=== PATIENT | male | born 1980 | race Caucasian/White ===

== ENCOUNTER 2022-04-28 17:01 | Inpatient (IN) | payer MEDICARE, MEDICAID ==
[~2022-04-28] VITALS: Ht 167.6 cm; Wt 95.3 kg
[2022-04-28] MEDS ORDERED: PNEUMOCOCCAL VACCINE POLYVALENT 0.5 ML VIAL [PPSV23] IM. ONE (21:45)
[2022-04-28] MEDS ORDERED: ZOLPIDEM TARTRATE 10 MG TABLET PO PRN (22:15)
[2022-04-28] MEDS: ZOLPIDEM TARTRATE 10 MG TABLET PO PRN (22:17)
[2022-04-28 23:26] LABS: GLUCOMETER DEV NAME(LOC) POC.BV
[2022-04-28 23:28] VITALS: BP 146/85
[2022-04-29 06:38] LABS: HEMOGLOBIN A1C 5.4 % (3.8-5.6)
[2022-04-29 06:46] LABS: BASOPHILS % (AUTO) 0.4 % (0.0-2.0); EOSINOPHILS % (AUTO) 3.1 % (1.0-6.0); HEMATOCRIT 44.1 % (41-53); HEMOGLOBIN 14.7 g/dL (13.5-17.5); LYMPHOCYTES # (AUTO) 2.2 K/uL (1.0-4.8); LYMPHOCYTES % (AUTO) 27.1 % (22.0-44.0); MEAN CORPUSCULAR HEMOGLOBIN 29.5 pg (26.0-34.0); MEAN CORPUSCULAR HGB CONC 33.3 G/dL (31.0-37.0); MEAN CORPUSCULAR VOLUME 89 fL (80-100); MONOCYTES # (AUTO) 0.5 K/uL (0.1-1.0); NEUTROPHILS # (AUTO) 5.1 K/uL (1.8-7.7); NEUTROPHILS % (AUTO) 63.4 % (40.0-70.0); PLATELET COUNT (AUTO) 297 K/uL (150-450); RED BLOOD CELL COUNT(AUTO) 4.98 MIL/uL (4.50-5.90); RED CELL DISTRIBUTION WIDTH 13.9 % (11.5-14.5)
[2022-04-29] MEDS ORDERED: ACETAMINOPHEN 325 MG TABLET PO PRN (07:00)
[2022-04-29] MEDS ORDERED: LOPERAMIDE HCL 2 MG CAPSULE PO PRN (07:00)
[2022-04-29] MEDS ORDERED: ONDANSETRON HCL 4 MG TABLET PO PRN (07:00)
[2022-04-29] MEDS ORDERED: CloNIDine HCL 0.1 MG TABLET PO PRN (07:00)
[2022-04-29] MEDS ORDERED: PETROLATUM,WHITE 28 GM JELLY TP PRN (07:00)
[2022-04-29] MEDS ORDERED: NICOTINE 14 MG/24 HOUR PATCH TD PRN (07:00)
[2022-04-29] MEDS ORDERED: DOCUSATE SODIUM 100 MG CAPSULE PO PRN (07:00)
[2022-04-29] MEDS ORDERED: GuaiFENesin/D-METHORPHAN [SUGAR-FREE] 200-20MG/10 ML SYRUP UDCUP PO PRN (07:00)
[2022-04-29] MEDS ORDERED: IBUPROFEN 400 MG TABLET PO PRN (07:00)
[2022-04-29] MEDS ORDERED: MAG HYDROX/AL HYDROX/SIMETH ES 30 ML SUSPENSION UDCUP PO PRN (07:00)
[2022-04-29] MEDS ORDERED: MAGNESIUM HYDROXIDE SUSPENSION 30 ML UDCUP PO PRN (07:00)
[2022-04-29] MEDS ORDERED: ALBUTEROL SULFATE HFA 90 MCG/PUFF 8 GM INHALER IH PRN (07:00)
[2022-04-29 07:10] LABS: ALANINE AMINOTRANSFERASE 61 U/L (12-78); ALBUMIN 3.5 g/dL (3.4-5.0); ALKALINE PHOSPHATASE 92 U/L (46-116); ANION GAP 12 mmol/L (8-16); ASPARTATE AMINOTRANSFERASE 28 U/L (15-37); BILIRUBIN,TOTAL 0.3 mg/dL (0.1-1.0); CALCIUM, TOTAL 8.9 mg/dL (8.8-10.5); CARBON DIOXIDE 24 mmol/L (22-29); CHLORIDE 105 mmol/L (98-107); CHOL/HDL RATIO 4.1 (4.2-7.3); CHOLESTEROL 165 mg/dL (131-200); CREATININE 0.75 mg/dL (0.60-1.30); FREE T4 (FREE THYROXINE) 0.81 ng/dL (0.76-1.46); GLUCOSE,RANDOM 87 mg/dL (70-110); HDL CHOLESTEROL 40 mg/dL (40-60); LDL CHOL (CALC.) 92 mg/dL (0-130); POTASSIUM 4.1 mmol/L (3.5-5.1); SODIUM SERUM 141 mmol/L (136-145); THYROID STIMULATING HORMONE 1.02 uIU/mL (0.36-3.74); TOTAL PROTEIN, SERUM 6.8 g/dL (6.4-8.2); TRIGLYCERIDES 165 mg/dL (15-150); UREA NITROGEN, BLOOD 11 mg/dL (7-18)
[2022-04-29 07:16] LABS: GLOMERULAR FILTR. RATE CALC > 60 mL/min (>60)
[2022-04-29 09:30] VITALS: BP 106/72
[2022-04-29] MEDS: LURASIDONE HCL 40 MG TABLET PO SCH (16:40)
[2022-04-29] MEDS: LORazepam 2 MG TABLET PO PRN (17:24)
[2022-04-29 20:17] VITALS: BP 129/80
[2022-04-29] MEDS: ZOLPIDEM TARTRATE 10 MG TABLET PO PRN (20:45)
[2022-04-30 08:53] VITALS: BP 130/81
[2022-04-30] MEDS: LORazepam 2 MG TABLET PO PRN (16:19)
[2022-04-30] MEDS: LURASIDONE HCL 40 MG TABLET PO SCH (16:59)
[2022-04-30] MEDS: ZOLPIDEM TARTRATE 10 MG TABLET PO PRN (20:57)
[2022-04-30 21:22] VITALS: BP 145/62
[2022-05-01 08:30] VITALS: BP 129/83
[2022-05-01] MEDS: LURASIDONE HCL 40 MG TABLET PO SCH (16:36)
[2022-05-01] MEDS: LORazepam 2 MG TABLET PO PRN (20:03)
[2022-05-01 20:45] VITALS: BP 117/77
[2022-05-01] MEDS: ZOLPIDEM TARTRATE 10 MG TABLET PO PRN (21:22)
[2022-05-02 07:52] LABS: AMPHET/METH SCREEN,URINE NEGATIVE (NEGATIVE); BARBITURATE SCREEN, URINE NEGATIVE (NEGATIVE); BENZODIAZEPINES SCREEN,URINE NEGATIVE (NEGATIVE); CANNABINOID SCREEN,URINE POSITIVE (NEGATIVE); COCAINE SCREEN,URINE NEGATIVE (NEGATIVE); METHADONE SCREEN, URINE NEGATIVE (NEGATIVE); OPIATE SCREEN,URINE NEGATIVE (NEGATIVE)
[2022-05-02 07:54] LABS: PHENCYCLIDINE SCREEN,URINE NEGATIVE (NEGATIVE)
[2022-05-02 08:35] VITALS: BP 123/78
[2022-05-02] MEDS: LURASIDONE HCL 40 MG TABLET PO SCH (16:57)
[2022-05-02] MEDS: LORazepam 2 MG TABLET PO PRN (16:57)
[2022-05-02 20:06] VITALS: BP 134/82
[2022-05-02] MEDS: ZOLPIDEM TARTRATE 10 MG TABLET PO PRN (20:23)
[2022-05-03 02:45] VITALS: BP 122/75
[2022-05-03] MEDS: LORazepam 2 MG TABLET PO PRN ×3 (02:55→14:43)
[2022-05-03 08:41] VITALS: BP 144/82
[2022-05-03] MEDS: HALOPERIDOL 5 MG TABLET PO PRN ×2 (14:44→20:11)
[2022-05-03] MEDS: LURASIDONE HCL 40 MG TABLET PO SCH (16:57)
[2022-05-03] MEDS: OMEGA-3/DHA/EPA/FISH OIL 1,000 MG CAPSULE PO SCH (16:57)
[2022-05-03] MEDS: ZOLPIDEM TARTRATE 10 MG TABLET PO PRN (20:11)
[2022-05-03 20:12] VITALS: BP 133/77
[2022-05-04 08:09] VITALS: BP 135/78
[2022-05-04] MEDS: OMEGA-3/DHA/EPA/FISH OIL 1,000 MG CAPSULE PO SCH (09:23)
[2022-05-04 10:41] LABS: GLUCOMETER DEV NAME(LOC) POC.BV
[2022-05-04] MEDS: LORazepam 2 MG TABLET PO PRN (13:58)
[2022-05-04] MEDS: LURASIDONE HCL 40 MG TABLET PO SCH (16:38)
[2022-05-04 21:14] VITALS: BP 110/79
[2022-05-04] MEDS: ZOLPIDEM TARTRATE 10 MG TABLET PO PRN (21:34)
[2022-05-05 08:47] VITALS: BP 124/83
[2022-05-05] MEDS: OMEGA-3/DHA/EPA/FISH OIL 1,000 MG CAPSULE PO SCH (09:11)
[2022-05-05] MEDS: LORazepam 2 MG TABLET PO PRN (09:51)
[2022-05-05] MEDS: HALOPERIDOL 5 MG TABLET PO PRN (09:53)
[2022-05-05] MEDS: LURASIDONE HCL 40 MG TABLET PO SCH (17:13)
[2022-05-05] MEDS: ZOLPIDEM TARTRATE 10 MG TABLET PO PRN (20:15)
[2022-05-05 21:13] VITALS: BP 125/81
[2022-05-06] MEDS: OMEGA-3/DHA/EPA/FISH OIL 1,000 MG CAPSULE PO SCH (08:22)
[2022-05-06] MEDS: LORazepam 2 MG TABLET PO PRN (08:22)
[2022-05-06 08:57] VITALS: BP 133/79
[2022-05-06] MEDS: LURASIDONE HCL 40 MG TABLET PO SCH (16:45)
[2022-05-06 20:37] VITALS: BP 122/72
[2022-05-06] MEDS: ZOLPIDEM TARTRATE 10 MG TABLET PO PRN (20:49)
[2022-05-07] MEDS: OMEGA-3/DHA/EPA/FISH OIL 1,000 MG CAPSULE PO SCH (08:34)
[2022-05-07 08:42] VITALS: BP 100/61
[2022-05-07] MEDS: LURASIDONE HCL 40 MG TABLET PO SCH (16:18)
[2022-05-07 20:09] VITALS: BP 135/83
[2022-05-07] MEDS: ZOLPIDEM TARTRATE 10 MG TABLET PO PRN (20:23)
[2022-05-08] MEDS: OMEGA-3/DHA/EPA/FISH OIL 1,000 MG CAPSULE PO SCH ×2 (09:00→17:19)
[2022-05-08] MEDS: LURASIDONE HCL 40 MG TABLET PO SCH (17:19)
[2022-05-08] MEDS: ZOLPIDEM TARTRATE 10 MG TABLET PO PRN (20:32)
[2022-05-08 21:09] VITALS: BP 121/76
[2022-05-09] MEDS: OMEGA-3/DHA/EPA/FISH OIL 1,000 MG CAPSULE PO SCH (08:07)
[2022-05-09 08:20] VITALS: BP 117/80
[2022-05-09] MEDS: HALOPERIDOL 5 MG TABLET PO PRN (10:52)
[2022-05-09] MEDS: LURASIDONE HCL 40 MG TABLET PO SCH (16:50)
[2022-05-09] MEDS: LORazepam 2 MG TABLET PO PRN (18:51)
[2022-05-09 20:04] VITALS: BP 108/72
[2022-05-09] MEDS: ZOLPIDEM TARTRATE 10 MG TABLET PO PRN (20:07)
[2022-05-10] MEDS: OMEGA-3/DHA/EPA/FISH OIL 1,000 MG CAPSULE PO SCH (08:09)
[2022-05-10 08:54] VITALS: BP 138/97
[2022-05-10] MEDS: LORazepam 2 MG TABLET PO PRN (11:07)
[2022-05-10] MEDS: HALOPERIDOL 5 MG TABLET PO PRN (12:00)
[2022-05-10] MEDS ORDERED: LORazepam 2 MG/ML VIAL IM ONE (16:15)
[2022-05-10] MEDS ORDERED: HALOPERIDOL LACTATE 5 MG/ML VIAL IM ONE (16:15)
[2022-05-10] MEDS ORDERED: DiphenhydrAMINE HCL 50 MG/ML VIAL IM ONE (16:15)
[2022-05-10] MEDS: LURASIDONE HCL 40 MG TABLET PO SCH (16:55)
[2022-05-10 20:25] VITALS: BP 110/62
[2022-05-10] MEDS: ZOLPIDEM TARTRATE 10 MG TABLET PO PRN (21:01)
[2022-05-11] MEDS: LORazepam 2 MG TABLET PO PRN ×2 (08:54→16:42)
[2022-05-11] MEDS: OMEGA-3/DHA/EPA/FISH OIL 1,000 MG CAPSULE PO SCH (08:54)
[2022-05-11] MEDS: HALOPERIDOL 5 MG TABLET PO PRN ×2 (08:54→16:42)
[2022-05-11 09:19] VITALS: BP 112/69
[2022-05-11] MEDS: LURASIDONE HCL 60 MG TABLET PO SCH (16:42)
[2022-05-11] MEDS: ZOLPIDEM TARTRATE 10 MG TABLET PO PRN (20:10)
[2022-05-11 20:13] VITALS: BP 128/87
[2022-05-12] MEDS: HALOPERIDOL 5 MG TABLET PO PRN ×2 (08:09→15:55)
[2022-05-12] MEDS: LORazepam 2 MG TABLET PO PRN ×2 (08:09→15:56)
[2022-05-12] MEDS: OMEGA-3/DHA/EPA/FISH OIL 1,000 MG CAPSULE PO SCH (08:10)
[2022-05-12 09:11] LABS: GLUCOMETER DEV NAME(LOC) POC.BV
[2022-05-12 10:02] VITALS: BP 115/75
[2022-05-12] MEDS: LURASIDONE HCL 60 MG TABLET PO SCH (16:11)
[2022-05-12] MEDS: ZOLPIDEM TARTRATE 10 MG TABLET PO PRN (20:00)
[2022-05-13 02:38] VITALS: BP 126/86
[2022-05-13 08:20] VITALS: BP 128/78
[2022-05-13] MEDS: OMEGA-3/DHA/EPA/FISH OIL 1,000 MG CAPSULE PO SCH (10:20)
[2022-05-13] MEDS: LORazepam 2 MG TABLET PO PRN ×2 (10:33→16:44)
[2022-05-13] MEDS: LURASIDONE HCL 60 MG TABLET PO SCH (17:13)
[2022-05-13 20:00] VITALS: BP 119/88
[2022-05-13] MEDS ORDERED: HALOPERIDOL LACTATE 5 MG/ML VIAL ONE (23:12)
[2022-05-13] MEDS ORDERED: DiphenhydrAMINE HCL 50 MG/ML VIAL ONE (23:12)
[2022-05-13] MEDS ORDERED: HALOPERIDOL LACTATE 5 MG/ML VIAL IM ONE (23:15)
[2022-05-13] MEDS ORDERED: LORazepam 2 MG/ML VIAL IM ONE (23:15)
[2022-05-13] MEDS ORDERED: DiphenhydrAMINE HCL 50 MG/ML VIAL IM ONE (23:15)
[2022-05-13 23:45] VITALS: BP 117/76
[2022-05-14 08:15] VITALS: BP 116/70
[2022-05-14] MEDS: OMEGA-3/DHA/EPA/FISH OIL 1,000 MG CAPSULE PO SCH (09:17)
[2022-05-14] MEDS: HALOPERIDOL 5 MG TABLET PO PRN (09:42)
[2022-05-14] MEDS: LORazepam 2 MG TABLET PO PRN (09:42)
[2022-05-14] MEDS: LURASIDONE HCL 80 MG TABLET PO SCH (16:55)
[2022-05-14 20:16] VITALS: BP 133/88
[2022-05-14] MEDS: ZOLPIDEM TARTRATE 10 MG TABLET PO PRN (21:09)
[2022-05-15 09:16] VITALS: BP 115/70
[2022-05-15] MEDS: OMEGA-3/DHA/EPA/FISH OIL 1,000 MG CAPSULE PO SCH (09:41)
[2022-05-15] MEDS: HALOPERIDOL 5 MG TABLET PO PRN (10:01)
[2022-05-15] MEDS: LORazepam 2 MG TABLET PO PRN (10:01)
[2022-05-15] MEDS ORDERED: LORazepam 2 MG/ML VIAL IM ONE (11:50)
[2022-05-15] MEDS ORDERED: DiphenhydrAMINE HCL 50 MG/ML VIAL IM ONE (11:50)
[2022-05-15] MEDS ORDERED: HALOPERIDOL LACTATE 5 MG/ML VIAL IM ONE (11:50)
[2022-05-15] MEDS ORDERED: DiphenhydrAMINE HCL 50 MG/ML VIAL ONE (11:53)
[2022-05-15] MEDS ORDERED: HALOPERIDOL LACTATE 5 MG/ML VIAL ONE ×2 (11:53→11:54)
[2022-05-15] MEDS ORDERED: LORazepam 2 MG/ML VIAL ONE (11:54)
[2022-05-15] MEDS: LURASIDONE HCL 80 MG TABLET PO SCH (19:06)
[2022-05-15 20:12] VITALS: BP 131/78
[2022-05-15] MEDS: ZOLPIDEM TARTRATE 10 MG TABLET PO PRN (20:55)
[2022-05-16 04:29] VITALS: BP 142/80
[2022-05-16 08:14] VITALS: BP 140/80
[2022-05-16] MEDS: OMEGA-3/DHA/EPA/FISH OIL 1,000 MG CAPSULE PO SCH (09:01)
[2022-05-16] MEDS: LORazepam 2 MG TABLET PO PRN ×4 (09:03→21:05)
[2022-05-16] MEDS: HALOPERIDOL 5 MG TABLET PO PRN ×3 (12:49→21:05)
[2022-05-16] MEDS: DiphenhydrAMINE HCL 25 MG CAPSULE PO PRN (17:03)
[2022-05-16] MEDS: LURASIDONE HCL 80 MG TABLET PO SCH (17:03)
[2022-05-16 20:05] VITALS: BP 122/71
[2022-05-16] MEDS: ZOLPIDEM TARTRATE 10 MG TABLET PO PRN (21:05)
[2022-05-17 08:07] VITALS: BP 114/67
[2022-05-17] MEDS: DiphenhydrAMINE HCL 25 MG CAPSULE PO PRN (09:24)
[2022-05-17] MEDS: LORazepam 2 MG TABLET PO PRN (09:24)
[2022-05-17] MEDS: OMEGA-3/DHA/EPA/FISH OIL 1,000 MG CAPSULE PO SCH (09:24)
[2022-05-17] MEDS: HALOPERIDOL 5 MG TABLET PO PRN (09:24)
[2022-05-17] MEDS ORDERED: LURA80TA2 PO (09:59)
== END 2022-05-17 11:30 | disposition home or self-care (01) | DRG 885 ==
LOC: B2X 20:02 → B3A 05-16 13:30
PROVIDERS: ADMIT Psychiatry & Neurology Psychiatry; ATTEND Psychiatry & Neurology Psychiatry
DX: F25.1 Schizoaffective disorder, depressive type (principal); R45.851 Suicidal ideations; Z20.822 Contact with and (suspected) exposure to COVID-19; F43.12 Post-traumatic stress disorder, chronic; I10 Essential (primary) hypertension; K59.00 Constipation, unspecified; M19.90 Unspecified osteoarthritis, unspecified site; Z59.00 Homelessness unspecified; Z91.51 Personal history of suicidal behavior
CPT/HCPCS: 80053; 80061; 80307; 83036; 84439; 84443; 85025; 87081; J1200; J1630; J2060; Q9967